=== PATIENT | male | born 1945 | race African-American/Black ===

== ENCOUNTER 2017-08-05 15:57 | Inpatient (IN) | payer MEDICARE, OTHER ==
[~2017-08-05] VITALS: Ht 180.3 cm; Wt 133.9 kg
[~2017-08-05 15:57] MED LIST: ADENOSINE 3 MG/ML 2 ML VIAL IVP ONE; AMIODARONE HCL 50 MG/ML 3 ML VIAL IVP ONE; LIDOCAINE HCL/PF 2% 5 ML SYRINGE IVP ONE
[2017-08-05] MEDS ORDERED: FLUT100B IH (16:11)
[2017-08-05] MEDS ORDERED: PRAZ1 PO (16:11)
[2017-08-05] MEDS ORDERED: CYCL10 PO (16:11)
[2017-08-05] MEDS ORDERED: DABI75CA3 PO (16:11)
[2017-08-05] MEDS ORDERED: [UNRECOGNIZED DRUG - CODE] (16:11)
[2017-08-05] MEDS ORDERED: OMEP10 PO (16:11)
[2017-08-05] MEDS ORDERED: SODIUM CHLORIDE 0.9% 1,000 ML IV ONE ×2 (16:15)
[2017-08-05] MEDS ORDERED: ACETAMINOPHEN 1000 MG/ISO-OSM 100 ML IV ONE (16:15)
[2017-08-05 16:36] LABS: HEMATOCRIT 39.3 % (41-53); HEMOGLOBIN 13.2 g/dL (13.5-17.5); MEAN CORPUSCULAR HEMOGLOBIN 31.1 pg (26.0-34.0); MEAN CORPUSCULAR HGB CONC 33.5 G/dL (31.0-37.0); MEAN CORPUSCULAR VOLUME 93 fL (80-100); PLATELET COUNT (AUTO) 230 K/uL (150-450); RED BLOOD CELL COUNT(AUTO) 4.23 MIL/uL (4.50-5.90); RED CELL DISTRIBUTION WIDTH 13.4 % (11.5-14.5); WHITE BLOOD COUNT (AUTO) 11.6 K/uL (4.5-11.0)
[2017-08-05 16:44] LABS: ANION GAP 7 mmol/L (8-16); CALCIUM, TOTAL 8.7 mg/dL (8.8-10.5); CARBON DIOXIDE 24 mmol/L (22-29); CHLORIDE 100 mmol/L (98-107); CREATININE 1.16 mg/dL (0.60-1.30); GLOMERULAR FILTR. RATE CALC > 60 mL/min (>60); POTASSIUM 3.2 mmol/L (3.5-5.1); SODIUM SERUM 131 mmol/L (136-145); UREA NITROGEN, BLOOD 20 mg/dL (7-18)
[2017-08-05 16:49] LABS: INR 1.5 (0.9-1.1); PROTHROMBIN TIME 15.6 SEC (9.4-11.6)
[2017-08-05 17:01] LABS: APPEARANCE,URINE CLEAR (CLEAR); GLUCOSE, URINE (UA) NEGATIVE (NEGATIVE); KETONES,URINE TRACE mg/dL (NEGATIVE); LEUKOCYTE ESTERASE ,URINE SMALL (NEGATIVE); OCCULT BLOOD,URINE TRACE (NEGATIVE); PH,URINE 5.5 (5.0-8.0); PROTEIN,URINE TRACE (NEGATIVE)
[2017-08-05 17:09] LABS: B-TYPE NATRIURETIC PEPTIDE 152 pg/mL (0-100)
[2017-08-05 17:10] LABS: ALANINE AMINOTRANSFERASE 108 U/L (12-78); ALBUMIN 3.5 g/dL (3.4-5.0); ASPARTATE AMINOTRANSFERASE 83 U/L (15-37); BILIRUBIN,TOTAL 5.4 mg/dL (0.1-1.0); CREATINE KINASE MB 0.8 ng/mL (0-5); CREATINE KINASE, TOTAL 174 U/L (39-308); TOTAL PROTEIN, SERUM 7.1 g/dL (6.4-8.2)
[2017-08-05 17:11] LABS: INFLUENZA TYPE B NEGATIVE FOR TYPE B (NEGATIVE)
[2017-08-05 17:30] LABS: ADD UA MICROSCOPIC YES
[2017-08-05 17:32] LABS: RBC,URINE 0-2 /HPF (0-2)
[2017-08-05 17:33] LABS: SQUAMOUS EPITHELIAL CELL,UR Few /LPF (None Seen)
[2017-08-05 17:49] LABS: BAND NEUTROPHILS % (MANUAL) 23 % (1-5); LYMPHOCYTES % (MANUAL) 7 % (22-44); TOTAL CELLS COUNTED 100
[2017-08-05] MEDS ORDERED: PIPERACILLIN/TAZO 3.375 GM/D5W 50 ML IV ONE (19:00)
[2017-08-05] MEDS ORDERED: VANCOMYCIN HCL 1 GM/D5% WATER 200 ML IV ONE (19:00)
[2017-08-05] MEDS: POTASSIUM CHL 10 MEQ/WATER 50 ML IV SCH ×2 (20:05→21:02)
[2017-08-05] MEDS ORDERED: ACETAMINOPHEN 500 MG TABLET PO ONE (21:00)
[2017-08-05] MEDS ORDERED: ONDANSETRON HCL 4 MG/2 ML VIAL IVP PRN (21:00)
[2017-08-05] MEDS ORDERED: 0.9% SODIUM CHLORIDE 10 ML SYRINGE IVP PRN ×2 (21:00→21:30)
[2017-08-05] MEDS ORDERED: ACETAMINOPHEN 325 MG TABLET PO ONE ×2 (21:00)
[2017-08-05] MEDS ORDERED: ACETAMINOPHEN 325 MG TABLET PO PRN (21:00)
[2017-08-05] MEDS ORDERED: KETOROLAC TROMETHAMINE 30 MG/ML VIAL IVP ONE (21:00)
[2017-08-05] MEDS ORDERED: MAGNESIUM HYDROXIDE SUSPENSION 30 ML UDCUP PO PRN (21:30)
[2017-08-05 22:40] VITALS: BP 136/68
[2017-08-06] VITALS (7 sets, daily range): BP systolic 113–155; BP diastolic 50–91
[2017-08-06] MEDS: POTASSIUM CHL 10 MEQ/WATER 50 ML IV SCH ×2 (00:02→01:34)
[2017-08-06] MEDS: DOCUSATE SODIUM 100 MG CAPSULE PO SCH ×3 (00:02→20:54)
[2017-08-06] MEDS: CYCLOBENZAPRINE HCL 10 MG TABLET PO SCH ×3 (00:02→20:53)
[2017-08-06] MEDS: DABIGATRAN ETEXILATE MESYLATE 75 MG CAPSULE PO SCH ×3 (00:02→20:54)
[2017-08-06] MEDS ORDERED: SODIUM CHLORIDE 0.9% 100 ML ONE (00:10)
[2017-08-06] MEDS: LEVOFLOXACIN 500 MG/D5% WATER 100 ML IV SCH ×2 (00:16→23:37)
[2017-08-06] MEDS: OxyCODONE HCL/ACETAMINOPHEN 5-325 MG TABLET PO PRN ×2 (01:02→14:42)
[2017-08-06] MEDS ORDERED: SODIUM CHLORIDE 0.9% 250 ML IV ONE ×2 (01:23→23:30)
[2017-08-06 06:24] LABS: EOSINOPHILS % (AUTO) 0.1 % (1.0-6.0); HEMOGLOBIN 12.8 g/dL (13.5-17.5); LYMPHOCYTES # (AUTO) 0.6 K/uL (1.0-4.8); LYMPHOCYTES % (AUTO) 5.6 % (22.0-44.0); MEAN CORPUSCULAR HEMOGLOBIN 31.5 pg (26.0-34.0); MEAN CORPUSCULAR HGB CONC 33.6 G/dL (31.0-37.0); MEAN CORPUSCULAR VOLUME 94 fL (80-100); MONOCYTES # (AUTO) 0.9 K/uL (0.1-1.0); MONOCYTES % (AUTO) 8.4 % (2.0-9.0); NEUTROPHILS # (AUTO) 9.3 K/uL (1.8-7.7); PLATELET COUNT (AUTO) 176 K/uL (150-450); RED BLOOD CELL COUNT(AUTO) 4.06 MIL/uL (4.50-5.90); RED CELL DISTRIBUTION WIDTH 13.6 % (11.5-14.5); WHITE BLOOD COUNT (AUTO) 10.8 K/uL (4.5-11.0)
[2017-08-06 06:49] LABS: NEUTROPHILS % (AUTO) 85.9 % (40.0-70.0)
[2017-08-06 06:59] LABS: ALANINE AMINOTRANSFERASE 73 U/L (12-78); ASPARTATE AMINOTRANSFERASE 50 U/L (15-37); BILIRUBIN,TOTAL 6.3 mg/dL (0.1-1.0); CALCIUM, TOTAL 8.4 mg/dL (8.8-10.5); CARBON DIOXIDE 24 mmol/L (22-29); GLOMERULAR FILTR. RATE CALC > 60 mL/min (>60); TOTAL PROTEIN, SERUM 6.6 g/dL (6.4-8.2); UREA NITROGEN, BLOOD 19 mg/dL (7-18)
[2017-08-06 07:08] LABS: ANION GAP 8 mmol/L (8-16); CHLORIDE 107 mmol/L (98-107); POTASSIUM 3.9 mmol/L (3.5-5.1); SODIUM SERUM 139 mmol/L (136-145)
[2017-08-06] MEDS: OMEPRAZOLE 10 MG CAPSULE PO SCH ×2 (08:22→20:59)
[2017-08-06] MEDS: PRAZOSIN HCL 1 MG CAPSULE PO SCH (08:23)
[2017-08-06] MEDS: ACETAMINOPHEN 325 MG TABLET PO PRN ×3 (08:40→19:07)
[2017-08-06] MEDS ORDERED: PANTOPRAZOLE SODIUM 40 MG/VIAL IVP SCH (09:00)
[2017-08-06 10:35] LABS: ABG A-A DIFF O2 85.5 mmHg (10-20.0); ABG BASE EXCESS -2.4 mmol/L (-2.0-3.0); ABG HCO3 23.2 mmol/L (22.0-26.0); ABG OXYHEMOGLOBIN 94.6 % (94.0-100.0); ABG PCO2 31 mmHg (35-45); ABG PH 7.458 (7.35-7.450); TEMPERATURE, FAHRENHEIT, BG 98.8 FAHREN (96.0-98.6)
[2017-08-06 10:38] LABS: ALLEN TEST, BLOOD GAS Positive
[2017-08-06] MEDS ORDERED: IPRATROPIUM BROMIDE 0.5 MG/2.5 ML NEB SOLUTION NEB PRN (11:00)
[2017-08-06] MEDS ORDERED: ALBUTEROL SULFATE 2.5 MG/0.5 ML NEB SOLUTION NEB PRN (11:00)
[2017-08-06] MEDS: FLUTICASONE FUROATE 100 MCG/INH INHALER [14] IH SCH (12:19)
[2017-08-06] MEDS: METOPROLOL TARTRATE 25 MG TABLET PO SCH ×2 (12:19→20:56)
[2017-08-06] MEDS ORDERED: ONDANSETRON HCL 4 MG/2 ML VIAL IVP PRN (14:00)
[2017-08-07] VITALS (9 sets, daily range): BP systolic 53–132; BP diastolic 39–65
[2017-08-07] MEDS: OxyCODONE HCL/ACETAMINOPHEN 5-325 MG TABLET PO PRN ×2 (03:54→13:37)
[2017-08-07] MEDS: METOPROLOL TARTRATE 25 MG TABLET PO SCH (07:53)
[2017-08-07] MEDS: OXYGEN THERAPY IH SCH ×2 (07:53→20:00)
[2017-08-07] MEDS: PRAZOSIN HCL 1 MG CAPSULE PO SCH (08:08)
[2017-08-07] MEDS: VANCOMYCIN HCL 1 GM/D5% WATER 200 ML IV SCH ×3 (08:19→16:25)
[2017-08-07] MEDS: DOCUSATE SODIUM 100 MG CAPSULE PO SCH ×3 (08:20→19:50)
[2017-08-07] MEDS: DABIGATRAN ETEXILATE MESYLATE 75 MG CAPSULE PO SCH ×4 (08:20→19:50)
[2017-08-07] MEDS: CYCLOBENZAPRINE HCL 10 MG TABLET PO SCH ×3 (08:20→22:14)
[2017-08-07] MEDS: OMEPRAZOLE 10 MG CAPSULE PO SCH ×3 (08:20→19:50)
[2017-08-07] MEDS ORDERED: DILTIAZEM HCL 5 MG/ML 5 ML VIAL IVP ONE ×2 (09:00→09:30)
[2017-08-07] MEDS: FLUTICASONE FUROATE 100 MCG/INH INHALER [14] IH SCH (09:00)
[2017-08-07] MEDS ORDERED: SODIUM CHLORIDE 0.9% 1,000 ML IV ONE (09:10)
[2017-08-07] MEDS ORDERED: AMIODARONE HCL 360 MG in DEXTROSE 5%-WATER 242.8 ML IV ONE (09:30)
[2017-08-07] MEDS ORDERED: DILTIAZEM HCL 125 MG in DEXTROSE 5%-WATER 100 ML IV PRN (10:00)
[2017-08-07] MEDS ORDERED: MIDAZOLAM HCL 5 MG/ML VIAL ONE (10:37)
[2017-08-07] MEDS ORDERED: FentaNYL CITRATE-PF 100 MCG/2 ML VIAL ONE (10:41)
[2017-08-07] MEDS ORDERED: AMIODARONE HCL 50 MG/ML 3 ML VIAL IVP ONE (11:00)
[2017-08-07] MEDS ORDERED: FentaNYL CITRATE-PF 100 MCG/2 ML VIAL IVP ONE (11:00)
[2017-08-07] MEDS ORDERED: MIDAZOLAM HCL 2 MG/2 ML VIAL IVP ONE (11:00)
[2017-08-07] MEDS ORDERED: DEXTROSE 5% IV ONE ×2 (11:15→14:10)
[2017-08-07] MEDS ORDERED: WATER IV ONE ×2 (11:15→14:10)
[2017-08-07] MEDS ORDERED: AMIODARONE HCL IV ONE ×2 (11:15→14:10)
[2017-08-07] MEDS ORDERED: LIDOCAINE HCL IV SCH (11:30)
[2017-08-07] MEDS ORDERED: LIDOCAINE HCL/PF 2% 5 ML SYRINGE IVP ONE (11:30)
[2017-08-07] MEDS ORDERED: DEXTROSE IV SCH (11:30)
[2017-08-07] MEDS ORDERED: DIGOXIN 250 MCG/ML 2 ML AMP IVP ONE ×4 (11:45→18:45)
[2017-08-07] MEDS ORDERED: POTASSIUM CHLORIDE 10% 40 MEQ/30 ML LIQUID UDCUP PO ONE (12:45)
[2017-08-07 13:37] LABS: GLUCOSE,POINT OF CARE 80 MG/DL (70-110)
[2017-08-07 14:44] LABS: MAGNESIUM 1.5 mg/dL (1.80-2.40)
[2017-08-07 15:27] LABS: CREATINE KINASE MB 1.8 ng/mL (0-5); CREATINE KINASE, TOTAL 93 U/L (39-308)
[2017-08-07] MEDS ORDERED: AMIODARONE HCL 540 MG in DEXTROSE 5%-WATER 239.2 ML IV ONE (15:30)
[2017-08-07] MEDS ORDERED: MAGNESIUM SULFATE 2 GM in DEXTROSE 5%-WATER 50 ML IV PRN (15:45)
[2017-08-07] MEDS ORDERED: MAGNESIUM OXIDE 400 MG TABLET PO PRN (15:45)
[2017-08-07] MEDS: SODIUM CHLORIDE 0.9% 1,000 ML IV SCH ×2 (15:45→18:57)
[2017-08-07] MEDS ORDERED: MAGNESIUM SULFATE 4 GM/WATER 100 ML IV PRN (15:45)
[2017-08-07] MEDS ORDERED: MAGNESIUM SULFATE 2 GM in DEXTROSE 5%-WATER 50 ML IV ONE (16:00)
[2017-08-07 17:53] LABS: ANION GAP 7 mmol/L (8-16); CALCIUM, TOTAL 8.5 mg/dL (8.8-10.5); CARBON DIOXIDE 23 mmol/L (22-29); CHLORIDE 106 mmol/L (98-107); GLOMERULAR FILTR. RATE CALC > 60 mL/min (>60); POTASSIUM 3.7 mmol/L (3.5-5.1); SODIUM SERUM 136 mmol/L (136-145); UREA NITROGEN, BLOOD 22 mg/dL (7-18)
[2017-08-07 18:19] LABS: B-TYPE NATRIURETIC PEPTIDE 131 pg/mL (0-100)
[2017-08-07 18:23] LABS: ALBUMIN 2.4 g/dL (3.4-5.0)
[2017-08-07] MEDS: ESMOLOL HCL 2500 MG/NACL 250 ML IV PRN ×2 (18:55→20:05)
[2017-08-07] MEDS ORDERED: POTASSIUM CHLORIDE 10 MEQ ER TABLET PO ONE (20:00)
[2017-08-07 22:00] LABS: CREATINE KINASE MB 1.7 ng/mL (0-5); CREATINE KINASE, TOTAL 83 U/L (39-308); THYROID STIMULATING HORMONE 1.61 uIU/mL (0.36-3.74)
[2017-08-07] MEDS: ACETAMINOPHEN 325 MG TABLET PO PRN (22:15)
[2017-08-07] MEDS: LEVOFLOXACIN 500 MG/D5% WATER 100 ML IV SCH (23:11)
[2017-08-08] VITALS (9 sets, daily range): BP systolic 98–150; BP diastolic 61–77
[2017-08-08] MEDS: VANCOMYCIN HCL 1 GM/D5% WATER 200 ML IV SCH (00:12)
[2017-08-08] MEDS: ESMOLOL HCL 2500 MG/NACL 250 ML IV PRN ×5 (01:48→21:45)
[2017-08-08 06:07] LABS: ALANINE AMINOTRANSFERASE 36 U/L (12-78); ALBUMIN 2.5 g/dL (3.4-5.0); ANION GAP 7 mmol/L (8-16); ASPARTATE AMINOTRANSFERASE 23 U/L (15-37); BILIRUBIN,TOTAL 2.5 mg/dL (0.1-1.0); CALCIUM, TOTAL 8.8 mg/dL (8.8-10.5); CARBON DIOXIDE 24 mmol/L (22-29); CHLORIDE 105 mmol/L (98-107); CREATINE KINASE, TOTAL 57 U/L (39-308); CREATININE 0.98 mg/dL (0.60-1.30); GLOMERULAR FILTR. RATE CALC > 60 mL/min (>60); POTASSIUM 4.3 mmol/L (3.5-5.1); SODIUM SERUM 136 mmol/L (136-145); TOTAL PROTEIN, SERUM 5.9 g/dL (6.4-8.2); UREA NITROGEN, BLOOD 18 mg/dL (7-18)
[2017-08-08 06:53] LABS: HEMOGLOBIN 11.3 g/dL (13.5-17.5); MEAN CORPUSCULAR HEMOGLOBIN 31.4 pg (26.0-34.0); MEAN CORPUSCULAR HGB CONC 33.3 G/dL (31.0-37.0); MEAN CORPUSCULAR VOLUME 94 fL (80-100); PLATELET COUNT (AUTO) 158 K/uL (150-450); RED BLOOD CELL COUNT(AUTO) 3.61 MIL/uL (4.50-5.90); RED CELL DISTRIBUTION WIDTH 13.9 % (11.5-14.5); WHITE BLOOD COUNT (AUTO) 5.1 K/uL (4.5-11.0)
[2017-08-08] MEDS ORDERED: DEXTROSE 5% IV ONE (07:45)
[2017-08-08] MEDS ORDERED: WATER IV ONE (07:45)
[2017-08-08] MEDS ORDERED: AMIODARONE HCL IV ONE (07:45)
[2017-08-08] MEDS: OXYGEN THERAPY IH SCH ×2 (07:52→20:00)
[2017-08-08] MEDS: VANCOMYCIN HCL 1.25 GM in DEXTROSE 5%-WATER 250 ML IV SCH ×3 (07:52→23:35)
[2017-08-08 07:53] LABS: DIGOXIN 1.15 ng/mL (0.90-2.00)
[2017-08-08] MEDS: METOPROLOL TARTRATE 25 MG TABLET PO SCH ×2 (07:53→20:01)
[2017-08-08] MEDS ORDERED: AMIODARONE HCL 360 MG in DEXTROSE 5%-WATER 242.8 ML IV ONE (08:00)
[2017-08-08] MEDS: DABIGATRAN ETEXILATE MESYLATE 75 MG CAPSULE PO SCH ×2 (08:20→20:01)
[2017-08-08] MEDS: CYCLOBENZAPRINE HCL 10 MG TABLET PO SCH ×2 (08:20→20:01)
[2017-08-08] MEDS: DOCUSATE SODIUM 100 MG CAPSULE PO SCH ×2 (08:20→20:01)
[2017-08-08] MEDS: OMEPRAZOLE 10 MG CAPSULE PO SCH ×2 (08:21→20:01)
[2017-08-08] MEDS ORDERED: AMIODARONE HCL 750 MG in DEXTROSE 5%-WATER 485 ML IV SCH (09:23)
[2017-08-08 10:33] LABS: CREATINE KINASE, TOTAL 51 U/L (39-308)
[2017-08-08 10:47] LABS: EOSINOPHILS % (MANUAL) 2 % (1-6); LYMPHOCYTES % (MANUAL) 20 % (22-44); TOTAL CELLS COUNTED 100
[2017-08-08] MEDS: ACETAMINOPHEN 325 MG TABLET PO PRN (11:45)
[2017-08-08] MEDS: CefTRIAXone 1 GM/DEXTROSE 50 ML IV SCH (13:22)
[2017-08-08] MEDS: MAG HYDROX/AL HYDROX/SIMETH 30 ML SUSP UDCUP PO PRN (13:32)
[2017-08-08] MEDS ORDERED: FUROSEMIDE 40 MG/4 ML VIAL IVP ONE (14:15)
[2017-08-08] MEDS ORDERED: AMIODARONE HCL 540 MG in DEXTROSE 5%-WATER 239.2 ML IV ONE (15:15)
[2017-08-08 16:30] LABS: CREATINE KINASE, TOTAL 43 U/L (39-308)
[2017-08-08] MEDS: FLUTICASONE FUROATE 100 MCG/INH INHALER [14] IH SCH (16:39)
[2017-08-08] MEDS: OxyCODONE HCL/ACETAMINOPHEN 5-325 MG TABLET PO PRN (17:07)
[2017-08-08 22:55] LABS: CREATINE KINASE, TOTAL 45 U/L (39-308)
[2017-08-09] VITALS (9 sets, daily range): BP systolic 92–151; BP diastolic 65–94
[2017-08-09] MEDS: ESMOLOL HCL 2500 MG/NACL 250 ML IV PRN ×7 (00:52→19:00)
[2017-08-09] MEDS: OxyCODONE HCL/ACETAMINOPHEN 5-325 MG TABLET PO PRN ×2 (02:09→10:12)
[2017-08-09 06:01] LABS: BASOPHILS % (AUTO) 0.5 % (0.0-2.0); EOSINOPHILS % (AUTO) 2.2 % (1.0-6.0); HEMATOCRIT 36.9 % (41-53); HEMOGLOBIN 12.2 g/dL (13.5-17.5); LYMPHOCYTES # (AUTO) 1.7 K/uL (1.0-4.8); LYMPHOCYTES % (AUTO) 16.4 % (22.0-44.0); MEAN CORPUSCULAR HEMOGLOBIN 30.8 pg (26.0-34.0); MEAN CORPUSCULAR VOLUME 93 fL (80-100); MONOCYTES # (AUTO) 2.1 K/uL (0.1-1.0); MONOCYTES % (AUTO) 20.2 % (2.0-9.0); NEUTROPHILS # (AUTO) 6.2 K/uL (1.8-7.7); NEUTROPHILS % (AUTO) 60.7 % (40.0-70.0); PLATELET COUNT (AUTO) 229 K/uL (150-450); RED BLOOD CELL COUNT(AUTO) 3.95 MIL/uL (4.50-5.90); RED CELL DISTRIBUTION WIDTH 13.6 % (11.5-14.5); WHITE BLOOD COUNT (AUTO) 10.2 K/uL (4.5-11.0)
[2017-08-09 06:33] LABS: ALANINE AMINOTRANSFERASE 33 U/L (12-78); ALBUMIN 2.6 g/dL (3.4-5.0); ANION GAP 9 mmol/L (8-16); ASPARTATE AMINOTRANSFERASE 19 U/L (15-37); BILIRUBIN,TOTAL 1.8 mg/dL (0.1-1.0); CALCIUM, TOTAL 8.9 mg/dL (8.8-10.5); CARBON DIOXIDE 24 mmol/L (22-29); CHLORIDE 104 mmol/L (98-107); CREATINE KINASE, TOTAL 45 U/L (39-308); CREATININE 0.93 mg/dL (0.60-1.30); GLOMERULAR FILTR. RATE CALC > 60 mL/min (>60); POTASSIUM 3.8 mmol/L (3.5-5.1); SODIUM SERUM 137 mmol/L (136-145); TOTAL PROTEIN, SERUM 6.3 g/dL (6.4-8.2); UREA NITROGEN, BLOOD 17 mg/dL (7-18)
[2017-08-09 06:55] LABS: RBC MORPHOLOGY COMMENT NORMAL RBC MORPH
[2017-08-09] MEDS: VANCOMYCIN HCL 1.25 GM in DEXTROSE 5%-WATER 250 ML IV SCH ×3 (07:48→23:41)
[2017-08-09] MEDS: DABIGATRAN ETEXILATE MESYLATE 75 MG CAPSULE PO SCH (08:31)
[2017-08-09] MEDS: OMEPRAZOLE 10 MG CAPSULE PO SCH ×2 (08:32→21:11)
[2017-08-09] MEDS: FLUTICASONE FUROATE 100 MCG/INH INHALER [14] IH SCH (08:32)
[2017-08-09] MEDS: DOCUSATE SODIUM 100 MG CAPSULE PO SCH ×2 (08:32→21:11)
[2017-08-09] MEDS: CYCLOBENZAPRINE HCL 10 MG TABLET PO SCH ×2 (08:32→21:10)
[2017-08-09] MEDS: OXYGEN THERAPY IH SCH ×2 (08:33→21:11)
[2017-08-09] MEDS: METOPROLOL TARTRATE 25 MG TABLET PO SCH ×5 (08:47→23:41)
[2017-08-09] MEDS: AMIODARONE HCL 750 MG in DEXTROSE 5%-WATER 485 ML IV SCH (09:05)
[2017-08-09] MEDS: AMIODARONE HCL 200 MG TABLET PO SCH ×3 (09:55→21:11)
[2017-08-09 10:33] LABS: DIGOXIN 0.88 ng/mL (0.90-2.00)
[2017-08-09] MEDS ORDERED: DIGOXIN 250 MCG/ML 2 ML AMP IVP ONE (11:15)
[2017-08-09] MEDS: CefTRIAXone 1 GM/DEXTROSE 50 ML IV SCH (13:27)
[2017-08-09] MEDS: ACETAMINOPHEN 325 MG TABLET PO PRN (17:44)
[2017-08-09 18:53] LABS: INR 1.1 (0.9-1.1); PROTHROMBIN TIME 11.4 SEC (9.4-11.6)
[2017-08-09] MEDS ORDERED: HEPARIN SODIUM,PORCINE 5,000 UNITS/ML VIAL IVP PRN ×2 (21:00)
[2017-08-09] MEDS ORDERED: HEPARIN SODIUM,PORCINE 5,000 UNITS/ML VIAL IVP ONE (21:00)
[2017-08-09] MEDS: HEPARIN SODIUM 25000 UNITS/D5W 250 ML IV PRN (21:16)
[2017-08-10] VITALS (8 sets, daily range): BP systolic 91–170; BP diastolic 26–100
[2017-08-10] MEDS: ESMOLOL HCL 2500 MG/NACL 250 ML IV PRN (00:22)
[2017-08-10 05:45] LABS: BASOPHILS # (AUTO) 0.04 K/uL (0.00-0.20); BASOPHILS % (AUTO) 0.3 % (0.0-2.0); EOSINOPHILS # (AUTO) 0.09 K/uL (0.00-0.70); EOSINOPHILS % (AUTO) 0.56 % (1.0-6.0); HEMATOCRIT 36.2 % (41-53); HEMOGLOBIN 11.8 g/dL (13.5-17.5); LYMPHOCYTES # (AUTO) 1.6 K/uL (1.0-4.8); LYMPHOCYTES % (AUTO) 10.4 % (22.0-44.0); MEAN CORPUSCULAR HEMOGLOBIN 30.4 pg (26.0-34.0); MEAN CORPUSCULAR HGB CONC 32.5 G/dL (31.0-37.0); MEAN CORPUSCULAR VOLUME 94 fL (80-100); MONOCYTES # (AUTO) 0.7 K/uL (0.1-1.0); MONOCYTES % (AUTO) 4.7 % (2.0-9.0); NEUTROPHILS # (AUTO) 12.9 K/uL (1.8-7.7); NEUTROPHILS % (AUTO) 84.1 % (40.0-70.0); PLATELET COUNT (AUTO) 243 K/uL (150-450); RED BLOOD CELL COUNT(AUTO) 3.86 MIL/uL (4.50-5.90); RED CELL DISTRIBUTION WIDTH 13.9 % (11.5-14.5); WHITE BLOOD COUNT (AUTO) 15.3 K/uL (4.5-11.0)
[2017-08-10 05:52] LABS: ANION GAP 8 mmol/L (8-16); CALCIUM, TOTAL 8.5 mg/dL (8.8-10.5); CARBON DIOXIDE 23 mmol/L (22-29); CHLORIDE 103 mmol/L (98-107); CREATININE 0.98 mg/dL (0.60-1.30); DIGOXIN 0.79 ng/mL (0.90-2.00); GLOMERULAR FILTR. RATE CALC > 60 mL/min (>60); POTASSIUM 3.9 mmol/L (3.5-5.1); SODIUM SERUM 134 mmol/L (136-145); UREA NITROGEN, BLOOD 15 mg/dL (7-18)
[2017-08-10] MEDS: METOPROLOL TARTRATE 25 MG TABLET PO SCH (06:10)
[2017-08-10] MEDS: OXYGEN THERAPY IH SCH ×2 (07:22→20:03)
[2017-08-10] MEDS: HEPARIN SODIUM 25000 UNITS/D5W 250 ML IV PRN ×2 (07:23→17:28)
[2017-08-10] MEDS ORDERED: ADENOSINE 3 MG/ML 2 ML VIAL IVP ONE ×2 (07:36→07:45)
[2017-08-10] MEDS: OMEPRAZOLE 10 MG CAPSULE PO SCH ×2 (08:02→20:01)
[2017-08-10] MEDS: FLUTICASONE FUROATE 100 MCG/INH INHALER [14] IH SCH (08:02)
[2017-08-10] MEDS: AMIODARONE HCL 200 MG TABLET PO SCH ×3 (08:03→20:02)
[2017-08-10] MEDS: CYCLOBENZAPRINE HCL 10 MG TABLET PO SCH ×2 (08:03→20:01)
[2017-08-10] MEDS: DOCUSATE SODIUM 100 MG CAPSULE PO SCH ×2 (08:03→20:02)
[2017-08-10] MEDS: VANCOMYCIN HCL 1.25 GM in DEXTROSE 5%-WATER 250 ML IV SCH ×3 (08:05→23:21)
[2017-08-10] MEDS ORDERED: METOPROLOL TARTRATE 25 MG TABLET PO ONE (08:30)
[2017-08-10] MEDS: AMIODARONE HCL 750 MG in DEXTROSE 5%-WATER 485 ML IV SCH (09:21)
[2017-08-10] MEDS: CefTRIAXone 1 GM/DEXTROSE 50 ML IV SCH (13:48)
[2017-08-10] MEDS: METOPROLOL TARTRATE 50 MG TABLET PO SCH ×2 (16:23→23:21)
[2017-08-10] MEDS ORDERED: SODIUM CHLORIDE 0.9% 250 ML IV ONE (19:51)
[2017-08-10] MEDS: MAG HYDROX/AL HYDROX/SIMETH 30 ML SUSP UDCUP PO PRN (20:02)
[2017-08-10] MEDS: OxyCODONE HCL/ACETAMINOPHEN 5-325 MG TABLET PO PRN (21:00)
[2017-08-11] VITALS (7 sets, daily range): BP systolic 121–166; BP diastolic 70–109
[2017-08-11] MEDS: HEPARIN SODIUM 25000 UNITS/D5W 250 ML IV PRN ×2 (03:46→14:34)
[2017-08-11] MEDS: ACETAMINOPHEN 325 MG TABLET PO PRN (04:20)
[2017-08-11 05:23] LABS: ALANINE AMINOTRANSFERASE 26 U/L (12-78); ALBUMIN 2.4 g/dL (3.4-5.0); ANION GAP 8 mmol/L (8-16); ASPARTATE AMINOTRANSFERASE 18 U/L (15-37); BILIRUBIN,TOTAL 1.4 mg/dL (0.1-1.0); CALCIUM, TOTAL 8.5 mg/dL (8.8-10.5); CARBON DIOXIDE 25 mmol/L (22-29); CHLORIDE 104 mmol/L (98-107); CREATININE 0.89 mg/dL (0.60-1.30); GLOMERULAR FILTR. RATE CALC > 60 mL/min (>60); POTASSIUM 3.6 mmol/L (3.5-5.1); SODIUM SERUM 137 mmol/L (136-145); TOTAL PROTEIN, SERUM 5.9 g/dL (6.4-8.2); UREA NITROGEN, BLOOD 11 mg/dL (7-18)
[2017-08-11 06:47] LABS: BASOPHILS % (AUTO) 0.5 % (0.0-2.0); EOSINOPHILS % (AUTO) 1.1 % (1.0-6.0); HEMATOCRIT 32.3 % (41-53); HEMOGLOBIN 10.7 g/dL (13.5-17.5); LYMPHOCYTES # (AUTO) 1.7 K/uL (1.0-4.8); LYMPHOCYTES % (AUTO) 13.3 % (22.0-44.0); MEAN CORPUSCULAR HEMOGLOBIN 31.2 pg (26.0-34.0); MEAN CORPUSCULAR HGB CONC 33.2 G/dL (31.0-37.0); MEAN CORPUSCULAR VOLUME 94 fL (80-100); MONOCYTES # (AUTO) 1.2 K/uL (0.1-1.0); MONOCYTES % (AUTO) 9.6 % (2.0-9.0); NEUTROPHILS # (AUTO) 9.4 K/uL (1.8-7.7); NEUTROPHILS % (AUTO) 75.5 % (40.0-70.0); PLATELET COUNT (AUTO) 264 K/uL (150-450); RED BLOOD CELL COUNT(AUTO) 3.44 MIL/uL (4.50-5.90); RED CELL DISTRIBUTION WIDTH 13.8 % (11.5-14.5); WHITE BLOOD COUNT (AUTO) 12.5 K/uL (4.5-11.0)
[2017-08-11] MEDS: OXYGEN THERAPY IH SCH ×2 (07:25→20:00)
[2017-08-11] MEDS: VANCOMYCIN HCL 1.25 GM in DEXTROSE 5%-WATER 250 ML IV SCH ×2 (08:22→15:23)
[2017-08-11] MEDS: OMEPRAZOLE 10 MG CAPSULE PO SCH ×2 (08:23→21:40)
[2017-08-11] MEDS: CYCLOBENZAPRINE HCL 10 MG TABLET PO SCH ×2 (08:23→21:40)
[2017-08-11] MEDS: DOCUSATE SODIUM 100 MG CAPSULE PO SCH ×2 (08:23→21:40)
[2017-08-11] MEDS: AMIODARONE HCL 200 MG TABLET PO SCH ×3 (08:23→21:40)
[2017-08-11] MEDS: METOPROLOL TARTRATE 50 MG TABLET PO SCH ×3 (08:25→17:30)
[2017-08-11] MEDS: AMIODARONE HCL 750 MG in DEXTROSE 5%-WATER 485 ML IV SCH (08:26)
[2017-08-11] MEDS: FLUTICASONE FUROATE 100 MCG/INH INHALER [14] IH SCH (08:31)
[2017-08-11] MEDS ORDERED: FLECAINIDE ACETATE 100 MG TABLET PO ONE (09:15)
[2017-08-11] MEDS: CefTRIAXone 1 GM/DEXTROSE 50 ML IV SCH (13:27)
[2017-08-11] MEDS ORDERED: DIGOXIN 250 MCG/ML 2 ML AMP IVP ONE (15:15)
[2017-08-11] MEDS: OxyCODONE HCL/ACETAMINOPHEN 5-325 MG TABLET PO PRN ×2 (16:46→21:41)
[2017-08-11] MEDS ORDERED: SODIUM CHLORIDE 0.9% 100 ML ONE (17:25)
[2017-08-12] VITALS (7 sets, daily range): BP systolic 118–160; BP diastolic 51–93
[2017-08-12] MEDS: VANCOMYCIN HCL 1.25 GM in DEXTROSE 5%-WATER 250 ML IV SCH ×2 (00:21→08:05)
[2017-08-12] MEDS: METOPROLOL TARTRATE 50 MG TABLET PO SCH ×4 (00:22→17:43)
[2017-08-12] MEDS: HEPARIN SODIUM 25000 UNITS/D5W 250 ML IV PRN ×2 (01:37→23:27)
[2017-08-12 05:26] LABS: BASOPHILS # (AUTO) 0.04 K/uL (0.00-0.20); BASOPHILS % (AUTO) 0.3 % (0.0-2.0); EOSINOPHILS # (AUTO) 0.19 K/uL (0.00-0.70); EOSINOPHILS % (AUTO) 1.49 % (1.0-6.0); HEMATOCRIT 31.1 % (41-53); HEMOGLOBIN 10.4 g/dL (13.5-17.5); LYMPHOCYTES # (AUTO) 1.9 K/uL (1.0-4.8); LYMPHOCYTES % (AUTO) 14.8 % (22.0-44.0); MEAN CORPUSCULAR HEMOGLOBIN 30.6 pg (26.0-34.0); MEAN CORPUSCULAR HGB CONC 33.4 G/dL (31.0-37.0); MEAN CORPUSCULAR VOLUME 92 fL (80-100); MONOCYTES # (AUTO) 1.3 K/uL (0.1-1.0); NEUTROPHILS # (AUTO) 9.3 K/uL (1.8-7.7); NEUTROPHILS % (AUTO) 73.4 % (40.0-70.0); PLATELET COUNT (AUTO) 297 K/uL (150-450); RED CELL DISTRIBUTION WIDTH 14.2 % (11.5-14.5); WHITE BLOOD COUNT (AUTO) 12.6 K/uL (4.5-11.0)
[2017-08-12 05:52] LABS: ALANINE AMINOTRANSFERASE 27 U/L (12-78); ALBUMIN 2.4 g/dL (3.4-5.0); ANION GAP 8 mmol/L (8-16); ASPARTATE AMINOTRANSFERASE 22 U/L (15-37); BILIRUBIN,TOTAL 1.2 mg/dL (0.1-1.0); CALCIUM, TOTAL 8.4 mg/dL (8.8-10.5); CARBON DIOXIDE 27 mmol/L (22-29); CHLORIDE 103 mmol/L (98-107); CREATININE 1.13 mg/dL (0.60-1.30); GLOMERULAR FILTR. RATE CALC > 60 mL/min (>60); POTASSIUM 3.5 mmol/L (3.5-5.1); SODIUM SERUM 138 mmol/L (136-145); TOTAL PROTEIN, SERUM 6.1 g/dL (6.4-8.2); UREA NITROGEN, BLOOD 14 mg/dL (7-18)
[2017-08-12] MEDS: OxyCODONE HCL/ACETAMINOPHEN 5-325 MG TABLET PO PRN ×2 (07:21→20:44)
[2017-08-12] MEDS: OXYGEN THERAPY IH SCH ×2 (07:29→20:45)
[2017-08-12] MEDS: DOCUSATE SODIUM 100 MG CAPSULE PO SCH ×2 (08:05→22:18)
[2017-08-12] MEDS: AMIODARONE HCL 200 MG TABLET PO SCH ×3 (08:05→22:18)
[2017-08-12] MEDS: OMEPRAZOLE 10 MG CAPSULE PO SCH ×2 (08:05→22:18)
[2017-08-12] MEDS: AMIODARONE HCL 750 MG in DEXTROSE 5%-WATER 485 ML IV SCH (08:07)
[2017-08-12] MEDS: FLUTICASONE FUROATE 100 MCG/INH INHALER [14] IH SCH (08:09)
[2017-08-12] MEDS: CYCLOBENZAPRINE HCL 10 MG TABLET PO SCH ×2 (08:12→22:18)
[2017-08-12] MEDS: MAGNESIUM OXIDE 400 MG TABLET PO SCH (10:50)
[2017-08-12] MEDS: CefTRIAXone 1 GM/DEXTROSE 50 ML IV SCH (13:44)
[2017-08-13 00:01] VITALS: BP 145/73
[2017-08-13] MEDS: METOPROLOL TARTRATE 50 MG TABLET PO SCH ×2 (00:04→05:11)
[2017-08-13 04:45] VITALS: BP 126/57
[2017-08-13 07:27] LABS: BASOPHILS % (AUTO) 0.3 % (0.0-2.0); EOSINOPHILS % (AUTO) 1.3 % (1.0-6.0); HEMATOCRIT 29.2 % (41-53); HEMOGLOBIN 9.8 g/dL (13.5-17.5); LYMPHOCYTES # (AUTO) 1.7 K/uL (1.0-4.8); LYMPHOCYTES % (AUTO) 12.8 % (22.0-44.0); MEAN CORPUSCULAR HEMOGLOBIN 30.7 pg (26.0-34.0); MEAN CORPUSCULAR HGB CONC 33.4 G/dL (31.0-37.0); MEAN CORPUSCULAR VOLUME 92 fL (80-100); MONOCYTES # (AUTO) 1.2 K/uL (0.1-1.0); MONOCYTES % (AUTO) 9.5 % (2.0-9.0); NEUTROPHILS # (AUTO) 9.9 K/uL (1.8-7.7); NEUTROPHILS % (AUTO) 76.1 % (40.0-70.0); PLATELET COUNT (AUTO) 359 K/uL (150-450); RED BLOOD CELL COUNT(AUTO) 3.18 MIL/uL (4.50-5.90); RED CELL DISTRIBUTION WIDTH 14.1 % (11.5-14.5)
[2017-08-13 07:35] LABS: ALANINE AMINOTRANSFERASE 27 U/L (12-78); ALBUMIN 2.5 g/dL (3.4-5.0); ANION GAP 8 mmol/L (8-16); ASPARTATE AMINOTRANSFERASE 25 U/L (15-37); BILIRUBIN,TOTAL 1.1 mg/dL (0.1-1.0); CALCIUM, TOTAL 8.3 mg/dL (8.8-10.5); CARBON DIOXIDE 25 mmol/L (22-29); CHLORIDE 105 mmol/L (98-107); CREATININE 1.09 mg/dL (0.60-1.30); GLOMERULAR FILTR. RATE CALC > 60 mL/min (>60); POTASSIUM 3.2 mmol/L (3.5-5.1); SODIUM SERUM 138 mmol/L (136-145); TOTAL PROTEIN, SERUM 6.1 g/dL (6.4-8.2); UREA NITROGEN, BLOOD 13 mg/dL (7-18)
[2017-08-13] MEDS: VANCOMYCIN HCL 1.25 GM in DEXTROSE 5%-WATER 250 ML IV SCH ×3 (08:00→20:59)
[2017-08-13] MEDS: OXYGEN THERAPY IH SCH ×2 (08:00→21:51)
[2017-08-13 08:44] VITALS: BP 132/69
[2017-08-13] MEDS ORDERED: SODIUM CHLORIDE 0.9% 250 ML IV ONE (10:05)
[2017-08-13] MEDS: CYCLOBENZAPRINE HCL 10 MG TABLET PO SCH ×2 (10:11→20:59)
[2017-08-13] MEDS: FLUTICASONE FUROATE 100 MCG/INH INHALER [14] IH SCH (10:11)
[2017-08-13] MEDS: AMIODARONE HCL 200 MG TABLET PO SCH ×3 (10:11→20:59)
[2017-08-13] MEDS: MAGNESIUM OXIDE 400 MG TABLET PO SCH (10:11)
[2017-08-13] MEDS: OMEPRAZOLE 10 MG CAPSULE PO SCH ×2 (10:12→20:59)
[2017-08-13] MEDS: DOCUSATE SODIUM 100 MG CAPSULE PO SCH ×2 (10:12→20:59)
[2017-08-13] MEDS: METOPROLOL SUCCINATE 100 MG ER TABLET PO SCH ×2 (10:12→21:51)
[2017-08-13] MEDS: DABIGATRAN ETEXILATE MESYLATE 75 MG CAPSULE PO SCH ×2 (10:12→20:59)
[2017-08-13 11:45] VITALS: BP 158/59
[2017-08-13] MEDS ORDERED: POTASSIUM CHLORIDE 20 MEQ ER TABLET PO ONE (12:15)
[2017-08-13] MEDS: CefTRIAXone 1 GM/DEXTROSE 50 ML IV SCH (13:01)
[2017-08-13] MEDS: ACETAMINOPHEN 325 MG TABLET PO PRN (14:53)
[2017-08-13 16:04] VITALS: BP 137/81
[2017-08-13 19:25] VITALS: BP 159/70
[2017-08-14 00:09] VITALS: BP 155/96
[2017-08-14] MEDS: OxyCODONE HCL/ACETAMINOPHEN 5-325 MG TABLET PO PRN ×3 (00:51→15:05)
[2017-08-14 04:26] VITALS: BP 131/72
[2017-08-14 05:48] LABS: BASOPHILS # (AUTO) 0.03 K/uL (0.00-0.20); BASOPHILS % (AUTO) 0.2 % (0.0-2.0); EOSINOPHILS # (AUTO) 0.17 K/uL (0.00-0.70); EOSINOPHILS % (AUTO) 1.38 % (1.0-6.0); HEMATOCRIT 28.1 % (41-53); HEMOGLOBIN 9.4 g/dL (13.5-17.5); LYMPHOCYTES # (AUTO) 1.4 K/uL (1.0-4.8); LYMPHOCYTES % (AUTO) 11.4 % (22.0-44.0); MEAN CORPUSCULAR HEMOGLOBIN 31.2 pg (26.0-34.0); MEAN CORPUSCULAR HGB CONC 33.5 G/dL (31.0-37.0); MEAN CORPUSCULAR VOLUME 93 fL (80-100); MONOCYTES # (AUTO) 0.8 K/uL (0.1-1.0); MONOCYTES % (AUTO) 6.6 % (2.0-9.0); NEUTROPHILS # (AUTO) 9.7 K/uL (1.8-7.7); NEUTROPHILS % (AUTO) 80.4 % (40.0-70.0); PLATELET COUNT (AUTO) 351 K/uL (150-450); RED BLOOD CELL COUNT(AUTO) 3.01 MIL/uL (4.50-5.90)
[2017-08-14 07:02] LABS: ALANINE AMINOTRANSFERASE 25 U/L (12-78); ALBUMIN 2.7 g/dL (3.4-5.0); ANION GAP 8 mmol/L (8-16); ASPARTATE AMINOTRANSFERASE 23 U/L (15-37); BILIRUBIN,TOTAL 1.1 mg/dL (0.1-1.0); CALCIUM, TOTAL 8.5 mg/dL (8.8-10.5); CARBON DIOXIDE 26 mmol/L (22-29); CHLORIDE 107 mmol/L (98-107); CREATININE 1.11 mg/dL (0.60-1.30); GLOMERULAR FILTR. RATE CALC > 60 mL/min (>60); POTASSIUM 3.3 mmol/L (3.5-5.1); SODIUM SERUM 141 mmol/L (136-145); UREA NITROGEN, BLOOD 11 mg/dL (7-18)
[2017-08-14 07:36] VITALS: BP 136/76
[2017-08-14] MEDS: OXYGEN THERAPY IH SCH (08:00)
[2017-08-14] MEDS ORDERED: POTASSIUM CHLORIDE 20 MEQ ER TABLET PO ONE (08:45)
[2017-08-14] MEDS: FLUTICASONE FUROATE 100 MCG/INH INHALER [14] IH SCH (08:51)
[2017-08-14] MEDS: VANCOMYCIN HCL 1.25 GM in DEXTROSE 5%-WATER 250 ML IV SCH (08:51)
[2017-08-14] MEDS: DOCUSATE SODIUM 100 MG CAPSULE PO SCH (08:51)
[2017-08-14] MEDS: CYCLOBENZAPRINE HCL 10 MG TABLET PO SCH (08:52)
[2017-08-14] MEDS: AMIODARONE HCL 200 MG TABLET PO SCH ×3 (08:52→20:53)
[2017-08-14] MEDS: MAGNESIUM OXIDE 400 MG TABLET PO SCH (08:52)
[2017-08-14] MEDS: DABIGATRAN ETEXILATE MESYLATE 75 MG CAPSULE PO SCH (08:53)
[2017-08-14] MEDS: METOPROLOL SUCCINATE 100 MG ER TABLET PO SCH (08:54)
[2017-08-14] MEDS: OMEPRAZOLE 10 MG CAPSULE PO SCH ×2 (08:54→20:53)
[2017-08-14 11:47] VITALS: BP 148/61
[2017-08-14] MEDS: CefTRIAXone 1 GM/DEXTROSE 50 ML IV SCH (13:47)
[2017-08-14 16:01] VITALS: BP 129/70
[2017-08-14 19:50] VITALS: BP 144/85
[2017-08-14] MEDS ORDERED: AMIO200T44 PO (21:27)
[2017-08-14] MEDS ORDERED: DOXY100C PO (21:29)
[2017-08-14] MEDS ORDERED: POTA25TA7 PO (21:31)
[2017-08-15] MEDS ORDERED: POTASSIUM CHLORIDE 20 MEQ ER TABLET PO SCH (09:00)
== END 2017-08-14 21:40 | disposition home or self-care (01) | DRG 871 ==
LOC: EMS 15:58 → 5S 21:05 → ICU 08-07 08:55 → 5N 08-12 12:15
PROVIDERS: ADMIT Internal Medicine; ATTEND Internal Medicine
PROC: 5A2204Z Restoration of Cardiac Rhythm, Single (ICD-10-PCS; principal; 2017-08-07)
DX: A41.9 Sepsis, unspecified organism (principal); G92 Toxic encephalopathy; I82.409 Acute embolism and thrombosis of unspecified deep veins of unspecified lower extremity; I48.91 Unspecified atrial fibrillation; E66.01 Morbid (severe) obesity due to excess calories; N39.0 Urinary tract infection, site not specified; E87.1 Hypo-osmolality and hyponatremia; I48.92 Unspecified atrial flutter; Z68.41 Body mass index [BMI] 40.0-44.9, adult; I45.10 Unspecified right bundle-branch block; J44.9 Chronic obstructive pulmonary disease, unspecified; I10 Essential (primary) hypertension; Z86.73 Personal history of transient ischemic attack (TIA), and cerebral infarction without residual deficits; E87.6 Hypokalemia; R53.81 Other malaise; K21.9 Gastro-esophageal reflux disease without esophagitis; I45.6 Pre-excitation syndrome; B96.20 Unspecified Escherichia coli [E. coli] as the cause of diseases classified elsewhere; D64.9 Anemia, unspecified; Z79.899 Other long term (current) drug therapy; Z95.1 Presence of aortocoronary bypass graft; R00.0 Tachycardia, unspecified
CPT/HCPCS: 76700; 80307; 82271; 82805; 82962; 83605; 83735; 84145; 84443; 87040; 87081; 87086; 87804; 93005; 93306; 93971; 94640; 96365; 96366; 96367; 96374; 96375; 97162; 99285; J0131; J0153; J0282; J0696; J1160; J1644; J1885; J1940; J1956; J2001; J2250; J2405; J2543; J3010; J3370; J3475; J3480; J3490; J7030; J7050; J7060

== ENCOUNTER 2018-04-07 01:13 | Emergency (ER) | payer MEDICARE, OTHER ==
[~2018-04-07] VITALS: Ht 180.3 cm; Wt 122.7 kg
[~2018-04-07 01:13] MED LIST changes: -ADENOSINE 3 MG/ML 2 ML VIAL IVP ONE; +AMIO200T44 PO; -AMIODARONE HCL 50 MG/ML 3 ML VIAL IVP ONE; +CYCL10 PO; +DABI75CA3 PO; +DOXY100C PO; +FLUT100B IH; -LIDOCAINE HCL/PF 2% 5 ML SYRINGE IVP ONE; +OMEP10 PO; +POTA25TA7 PO; +PRAZ1 PO; +[UNRECOGNIZED DRUG - CODE]
[2018-04-07] MEDS ORDERED: SENN176S PO (01:25)
[2018-04-07] MEDS ORDERED: FURO20 PO (01:25)
[2018-04-07] MEDS ORDERED: LOSA50TA37 PO (01:25)
[2018-04-07] MEDS ORDERED: DABI150 PO (01:25)
[2018-04-07] MEDS ORDERED: HYDR-4069 PO (01:25)
[2018-04-07] MEDS ORDERED: PRAZ2 PO (01:25)
[2018-04-07] MEDS ORDERED: [UNRECOGNIZED DRUG - OTHER] PO (01:25)
[2018-04-07 01:59] LABS: EOSINOPHILS % (AUTO) 1.6 % (1.0-6.0); HEMATOCRIT 39.4 % (41-53); HEMOGLOBIN 13.8 g/dL (13.5-17.5); LYMPHOCYTES # (AUTO) 1.8 K/uL (1.0-4.8); MEAN CORPUSCULAR HEMOGLOBIN 32.6 pg (26.0-34.0); MEAN CORPUSCULAR HGB CONC 34.9 G/dL (31.0-37.0); MEAN CORPUSCULAR VOLUME 94 fL (80-100); MONOCYTES # (AUTO) 0.6 K/uL (0.1-1.0); MONOCYTES % (AUTO) 9.5 % (2.0-9.0); NEUTROPHILS # (AUTO) 3.4 K/uL (1.8-7.7); NEUTROPHILS % (AUTO) 56.9 % (40.0-70.0); PLATELET COUNT (AUTO) 234 K/uL (150-450); RED BLOOD CELL COUNT(AUTO) 4.21 MIL/uL (4.50-5.90); RED CELL DISTRIBUTION WIDTH 13.5 % (11.5-14.5)
[2018-04-07 02:07] LABS: ANION GAP 7 mmol/L (8-16); CALCIUM, TOTAL 8.8 mg/dL (8.8-10.5); CARBON DIOXIDE 25 mmol/L (22-29); CHLORIDE 106 mmol/L (98-107); GLUCOSE,RANDOM 101 mg/dL (70-110); POTASSIUM 3.2 mmol/L (3.5-5.1); SODIUM SERUM 138 mmol/L (136-145); UREA NITROGEN, BLOOD 7 mg/dL (7-18)
[2018-04-07 02:08] LABS: GLOMERULAR FILTR. RATE CALC > 60 mL/min (>60)
[2018-04-07 02:14] LABS: ALANINE AMINOTRANSFERASE 23 U/L (12-78); ALBUMIN 3.9 g/dL (3.4-5.0); ALKALINE PHOSPHATASE 73 U/L (46-116); ASPARTATE AMINOTRANSFERASE 22 U/L (15-37); BILIRUBIN,TOTAL 1.1 mg/dL (0.1-1.0); TOTAL PROTEIN, SERUM 7.1 g/dL (6.4-8.2)
[2018-04-07] MEDS ORDERED: ONDANSETRON HCL 4 MG/2 ML VIAL IVP ONE (02:30)
[2018-04-07] MEDS ORDERED: FentaNYL CITRATE-PF 100 MCG/2 ML VIAL IVP ONE (02:30)
[2018-04-07] MEDS ORDERED: BARIUM SULFATE 0.1% SUSPENSION 450 ML BOTTLE PO ONE (02:30)
[2018-04-07] MEDS ORDERED: POTASSIUM CHLORIDE 10% 40 MEQ/30 ML LIQUID UDCUP PO ONE (03:15)
[2018-04-07 06:26] VITALS: BP 156/101
== END 2018-04-07 06:40 | disposition home or self-care (01) ==
LOC: EMS 01:14
DX: M54.5 Low back pain (principal); R10.84 Generalized abdominal pain; R00.2 Palpitations; G89.29 Other chronic pain; I48.91 Unspecified atrial fibrillation; I10 Essential (primary) hypertension; J44.9 Chronic obstructive pulmonary disease, unspecified; Z86.73 Personal history of transient ischemic attack (TIA), and cerebral infarction without residual deficits
CPT/HCPCS: 36415; 74176; 80053; 84484; 85025; 93005; 96374; 96375; 99285; G0480; J2405; J3010